=== PATIENT | male | born 1950 | race Caucasian/White ===

== ENCOUNTER 2024-04-17 07:44 | Emergency (ER) | payer MEDICARE, SELFPAY ==
[2024-04-17] VITALS (10 sets, daily range): BP systolic 100–127; BP diastolic 64–79; PULSE 93–113; RESP 18–53; TEMP 36.4; O2SAT 97–100
--- NOTE | ~2024-04-17 | CT_ITS ---
EXAMINATION: CT diagnostic chest w con DATE: 04/17/2024 10:34 INDICATION: pneumonia TECHNIQUE: Computed tomography (CT) of the chest was performed with 100 mL Omnipaque-350 intravenous contrast. Additional 3D reconstructions utilizing coronal maximum intensity projection (MIP) were per formed. Automated exposure control and iterative reconstruction technique were employed. The dose-dae gth product was 152.09 mGy-cm. COMPARISON: None FINDINGS: Emphysema. Volume loss in the right hemithorax with right middle lobe collapse and atelectasis with v olume loss, groundglass opacities and mucous plugging in the right lower lobe. Peripheral consolidati on with prominent central cavitation in the right upper lobe. There is a central filling defect in th e bronchus intermedius which could represent additional mucous plugging or solid neoplasm. There is p leural thickening and increased subpleural fat at the periphery of the right lung. Small left pleural effusion with dependent atelectasis in the left upper and lower lobes. 2.0 x 1.7 cm spiculated nodul e in the perihilar left upper lobe concerning for primary bronchogenic carcinoma. There is rightward shift of the heart and mediastinum resulting from a volume loss the right lung. Heart size is normal. Atherosclerotic coronary artery calcification. Thoracic aorta is normal in caliber with no dissectio n. There is prominent atherosclerotic plaque with moderate severity 70% stenosis at the proximal left subclavian artery. No pathologically enlarged thoracic lymphadenopathy. 4.9 cm exophytic left renal cyst. Visualized upper abdomen is otherwise unremarkable. Mild thoracic spondylosis. IMPRESSION: 1. Prominent volume loss in the right hemithorax with right middle lobe collapse and atelectasis with mucous plugging in the right lower lobe and potentially with associated postobstructive pneumonia. T here is an intraluminal filling defect at the proximal intermedius which could be due to mucous plugg ing or neoplasm and would recommend bronchoscopy for further evaluation. 2. Emphysema with prominent cavitary lung disease in the right upper lobe which appears more likely s equela of chronic pneumonia. 3. 2.0 x 1.7 cm spiculated left upper lobe nodule suspicious for primary bronchogenic carcinoma. The perihilar location would be problematic for percutaneous biopsy but appears amenable to bronchoscopic biopsy via the anterior segmental bronchus. 4. Small left pleural effusion. 5. Moderate 70% stenosis of the proximal left subclavian artery. Reviewed, dictated and finalized at location A. IMPRESSION: 1. Prominent volume loss in the right hemithorax with right middle lobe collaps e and atelectasis with mucous plugging in the right lower lobe and potentially with associated postobstructive pneumonia. There is an intraluminal filling def ect at the proximal intermedius which could be due to mucous plugging or neopla sm and would recommend bronchoscopy for further evaluation. 2. Emphysema with prominent cavitary lung disease in the right upper lobe which appears more likely sequela of chronic pneumonia. 3. 2.0 x 1.7 cm spiculated left upper lobe nodule suspicious for primary bronch ogenic carcinoma. The perihilar location would be problematic for percutaneous biopsy but appears amenable to bronchoscopic biopsy via the anterior segmental bronchus. 4. Small left pleural effusion. 5. Moderate 70% stenosis of the proximal left subclavian artery.
--- NOTE | ~2024-04-17 | XR_ITS ---
EXAMINATION: XR chest 2V DATE: 04/17/2024 09:28 INDICATION: Shortness of breath. COPD. TECHNIQUE: frontal and lateral views of the chest were obtained. COMPARISON: None FINDINGS: Reason increased lucency and architectural distortion in the lungs consistent with emphysema. Volume loss and significant opacification of much of the right hemithorax. There is pleural effusion surroun ding aerated portions of the lung in the mid to upper lung zone. Some air bronchograms are evident in the right lower lung zone and paramediastinal midlung zone. Additional consolidation at the posterio r medial left hemithorax suggesting at least partial left lower lobar collapse. Nodule versus small p atchy airspace opacity in the mid left lung projecting over the posterior left fifth rib. No pneumoth orax or left-sided pleural effusion. Cardiac silhouette is obscured with rightward shift of the heart and mediastinum. Suggestion of an old fracture of the lateral left clavicle. IMPRESSION: 1. Emphysema. 2. Volume loss in right hemithorax was significant consolidation in the right lung consistent with at electasis and possible superimposed pneumonia. 3. Consolidation in the posterior medial left lower lung zone consistent with at least partial left l ower lobe collapse and possible superimposed pneumonia. 4. Small to possibly moderate-sized right pleural effusion. Reviewed, dictated and finalized at location A. IMPRESSION: 1. Emphysema. 2. Volume loss in right hemithorax was significant consolidation in the right l leonardo consistent with atelectasis and possible superimposed pneumonia. 3. Consolidation in the posterior medial left lower lung zone consistent with a t least partial left lower lobe collapse and possible superimposed pneumonia. 4. Small to possibly moderate-sized right pleural effusion.
--- NOTE | 2024-04-17 08:03 | ECG_ITS ---
Test Date: 2024-04-17 08:04:56 Measurements Intervals [place] Rate: 94 P: 48 [place]: 162 QRS: -73 QRSD: 130 T: 42 QT: 388 QTc: 487 Interpretive Statements SINUS RHYTHM RIGHT BUNDLE BRANCH BLOCK [120+ ms QRS DURATION, UPRIGHT V1, 40+ ms S IN I/aVL/V4/V5/V6] LEFT ANTERIOR FASCICULAR BLOCK [QRS AXIS <= -45, QR IN I, RS IN II] No previous ECG available for comparison Electronically Signed On 04-17-2024 11:39:12 CDT by Wojciech Branham M.D.
--- NOTE | 2024-04-17 08:12 | ED.GENADULT ---
HPI - General Adult General Chief complaint: Shortness of Breath/Dyspnea Stated complaint: SOB Time Seen by Provider: 04/17/24 07:45 History of Present Illness HPI narrative: 73-year-old male presenting to the emergency department for evaluation for increased cough and congestion. Patient states that he had previously been on 4L oxygen at nighttime but for the past 3 months he has been on oxygen all the time. Patient states for the last 3 weeks he has had a productive cough. Patient reports that he quit smoking approximately 5 months ago. Patient had increased work of breathing and shortness of breath this morning so EMS was called. Patient was saturating and 80s on his normal 4 L but was treated with a breathing treatment. Upon arrival emergency department patient is on 4 L and saturating 100%. Patient does have a productive cough which he states is unchanged. Patient appears to be in no distress. It was later found out that patient was just discharged from [facility] approximately 3 days ago. At that time they attempted to get him to go into hospice and patient declined. Patient is still adamant that he does not want to be on hospice. Related Data Allergies Allergy/AdvReac Type Severity Reaction Status Date / Time eucalyptus Allergy Rash Verified 04/17/24 07:56 ibuprofen [From Motrin] Allergy Blurry Verified 04/17/24 07:56 Vision Review of Systems Review of Systems: All systems reviewed & are unremarkable except as noted in HPI and below Exam Narrative: APPEARANCE: Ill-appearing, no pain, no distress, well-nourished. HEAD: normocephalic, atraumatic. EYES: PERRLA/EOMI, conjunctivae clear. NOSE: Normal no drainage EARS:TMS clear with good light reflex. THROAT: Pharynx clear, no exudate. NECK: Supple. No adenopathy, no masses. RESPIRATORY: Congestive lung sounds bilaterally with wheeze CARDIOVASCULAR: Regular rate and rhythm without murmurs rubs or gallops. ABDOMINAL: Soft, nontender, nondistended, normal bowel sounds MUSCULOSKELETAL: Moves all extremities. Strength/ROM intact, No edema, No calf tenderness. NEURO: Alert. Cranial nerves II through XII intact. Grossly intact SKIN: Warm, dry. Normal Color Course Course Emergency Course: Patient was accepted to [facility] to be evaluated by pulmonology. Vital Signs Vital signs: Vital Signs Temperature 97.5 F L 04/17/24 07:45 Pulse Rate 100 04/17/24 07:45 Respiratory Rate 53 H 04/17/24 07:45 Blood Pressure 127/78 04/17/24 07:45 Pulse Oximetry 99 04/17/24 07:45 Oxygen Delivery Nasal Cannula 04/17/24 07:45 Oxygen Flow Rate 4 04/17/24 07:45 Temperature 97.5 F L 04/17/24 07:45 Pulse Rate 100 04/17/24 17:40 Respiratory Rate 19 04/17/24 17:40 Blood Pressure 100/64 04/17/24 13:02 Pulse Oximetry 97 04/17/24 13:02 Oxygen Delivery Nasal Cannula 04/17/24 09:05 Oxygen Flow Rate 4 04/17/24 09:05 Medical Decision Making MDM Narrative Medical decision making narrative: Discussed the case with the hospitalist [facility] for potential transfer back to their facility. Patient was just discharged 2 days ago. I attempted to get the patient admitted to our facility and our hospitalist declined recommending that he be transferred back to [facility]. Patient is afebrile with no leukocytosis and hemoglobin of 10.7. Patient has no acute abnormalities on his CMP. Patient was positive for MRSA. Patient was negative for influenza RSV and COVID. Patient was distally started on Rocephin and azithromycin but in response to the MRSA result patient was also started on vancomycin. I discussed the case with the hospitalist at [facility] and patient was accepted to be seen by pulmonology. Patient was comfortable the plan for transfer back to [facility]. Differential Diagnosis Differential Diagnosis: Pneumonia, aspiration pneumonia, COPD, chronic pneumonia mucous plugging, hypoxia, COPD, lung cancer [place]
[2024-04-17 08:23] LABS: Basophils Absolute Auto 0.1 K/mm3 (0.0-0.1); Eosinophils Absolute Auto 0.4 K/mm3 (0-0.3); Eosinophils Percent Auto 8.3 % (0-4.4); Hematocrit 34.9 % (42.0-52.0); Hemoglobin 10.7 g/dL (14.0-18.0); Lymphocytes Absolute Auto 0.92 K/mm3 (0.9-3.2); Lymphocytes Percent Auto 18.2 % (18.3-44.2); Mean Corpuscular HGB Conc 30.7 g/dl (32-36); Mean Corpuscular Hemoglobin 29.3 pg (26-34); Mean Corpuscular Volume 95.6 fl (80-100); Mean Platelet Volume 9.1 fl (7.4-10.4); Monocytes Absolute Auto 0.5 K/mm3 (0.1-0.6); Monocytes Percent Auto 9.3 % (2.6-8.5); Neutrophils Absolute Auto 3.2 K/mm3 (1.3-6.7); Neutrophils Percent Auto 63.2 % (45.5-73.1); Platelet Count Result 183 k/mm3 (150-375); Red Blood Count 3.65 M/mm3 (4.6-6.20); Red Cell Distribution Width 16.7 % (11.5-14.5); White Blood Count 5.1 K/mm3 (4.5-10.0)
[2024-04-17] MEDS: ALBUTEROL SULFATE NEB 2.5 MG/3 ML INH 5 MG INHALATION (08:26)
[2024-04-17 08:33] LABS: Alanine Aminotransferase 15 U/L (6-50); Albumin Level 3.2 g/dL (3.5-5.1); Alkaline Phosphatase 48 U/L (38-126); Anion Gap 3 mmol/L (4-12); Aspartate Amino Transferase 23 U/L (17-59); Bilirubin,Total 0.2 mg/dL (0.2-1.3); Blood Urea Nitrogen 20 mg/dL (9-20); Calcium 8.4 mg/dL (8.4-10.2); Carbon Dioxide 34 mmol/L (22-30); Chloride 103 mmol/L (98-107); Estimated CRCL calculation 97 ml/min; Estimated Glomerular Filt Rate > 60; Glucose 101 mg/dL (65-110); Potassium 3.9 mmol/L (3.4-5.0); Sodium 140 mmol/L (137-145)
[2024-04-17 09:00] LABS: Influenza A QL RT-PCR Negative (Negative); Influenza B QL RT-PCR Negative (Negative); RSV RNA, RT-PCR Negative (Negative); SARS-CoV-2 RNA PCR Negative (Negative)
[2024-04-17] MEDS: methylPREDNISolone SOD SUCC 125 MG VIAL IV PUSH (11:31)
[2024-04-17] MEDS: AZITHROMYCIN 500 MG/NS 250 ML 500 MG/250 ML BAG 250 MG IVPB (11:35)
[2024-04-17 12:15] LABS: MRSA (PCR) DETECTED (NOT DETECTE)
[2024-04-17] MEDS: SODIUM CHLORIDE 0.9% IV 1,000 ML 999 ML IV CONT ×2 (13:00→18:19)
[2024-04-17] MEDS: VANCOMYCIN 1,500 MG/NS 500 ML BAG 250 MG IVPB (13:55)
--- NOTE | 2024-04-17 15:01 | PCCCNOTE ---
1502-Pippa from [facility] called at [phone] stating the daughter would like for the pt to come back to [facility] and be admitted to [facility] services. Pt is currently in H3 holding to be transported to [facility]. Pt is alert and oriented x4. Spoke to him regarding his wishes moving forward with his medical care. Stated he has no desire to go on hospice. Stated he is wanting curative treatment and wanting to be transferred to [facility] as planned. Stated his son Jackson Benedict is his HCPOA at [phone] however no legal forms currently noted in the chart at this time. Called Pippa of [facility] and made her aware of the pt's wishes.-love.
[2024-04-17] MEDS: MORPHINE SULFATE (*CRX) 2 MG/ML INJ IV PUSH ×2 (15:38→18:43)
[2024-04-17] MEDS: ALBUTEROL SULFATE NEB 2.5 MG/3 ML INH INHALATION (17:36)
== END 2024-04-17 19:48 | disposition short-term general hospital (02) ==
PROVIDERS: Internal Medicine; Emergency Provider Emergency Medicine; PCP Internal Medicine
DX: J18.9 Pneumonia, unspecified organism (principal); T17.590A Other foreign object in bronchus causing asphyxiation, initial encounter; Z22.322 Carrier or suspected carrier of Methicillin resistant Staphylococcus aureus; Z20.822 Contact with and (suspected) exposure to COVID-19; Z87.891 Personal history of nicotine dependence; I77.1 Stricture of artery; R91.1 Solitary pulmonary nodule; W44.F9XA Other object of natural or organic material, entering into or through a natural orifice, initial encounter
CPT/HCPCS: 36415; 71046; 71260; 80053; 85025; 87040; 87637; 87641; 93005; 94640; 96361; 96365; 96366; 96367; 96375; 96376; 99285; J0456; J0696; J2270; J2919; J3370; J7030; Q9967